=== PATIENT | female | born 1955 | race Caucasian/White ===

== ENCOUNTER 2017-08-13 10:00 | Outpatient (CLI) | payer OTHER ==
--- NOTE | 2017-08-13 11:20 | ULT ---
LEFT BREAST DIAGNOSTIC ULTRASOUND: Date: 08/13/17 INDICATION: Follow-up left breast lesion in 3 o'clock position. FINDINGS: There is a 6.0 x 5.0 x 4.5 mm anechoic cyst with posterior acoustic wall enhancement corresponding t he mammographic mass seen in the left breast 3:00 position on the diagnostic mammogram. IMPRESSION: BIRADS 2: Benign Finding(s) Recommend annual mammographic screening. Patient counseled on findings prior to leaving the departme nt. POS: [facility]
--- NOTE | 2017-08-13 11:22 | MMO ---
LEFT BREAST DIAGNOSTIC MAMMOGRAM: Date: 08/13/17 COMPARISON: Screening evaluation dated 08/12/17. FINDINGS: The left breast lesion identified on the screening study of 08/12/17 persists on the diagnostic foca l spot magnification compression views. There is an oval equal density lesion seen within the left b reast 3 o'clock position. Ultrasound examination of this lesion demonstrated that the lesion was ane choic with posterior acoustic wall enhancement and measured 6.0 x 5.0 mm and is consistent with a si mple cyst. There is a biopsy clip within the left breast that was reportedly related to a benign biopsy. There are benign-appearing calcifications within the left breast. IMPRESSION: BIRADS 2: Benign Finding(s) The focal equal density oval mass within the left breast 3 o'clock position demonstrated to be a cys t by sonography. Patient was counseled on the findings prior to leaving the department. POS: [facility]
== END 2017-08-13 10:01 | disposition home or self-care (01) ==
LOC: MAMMO 10:00
PROVIDERS: ATTEND Obstetrics & Gynecology
DX: R92.2 Inconclusive mammogram (principal)
CPT/HCPCS: G0206-LT

== ENCOUNTER 2018-09-08 12:01 | Outpatient (CLI) | payer OTHER | END 2018-09-08 12:02 | disposition home or self-care (01) | LOC: BICMAMMO 12:01 | PROVIDERS: ATTEND Obstetrics & Gynecology | DX: Z12.31 Encounter for screening mammogram for malignant neoplasm of breast (principal); Z80.3 Family history of malignant neoplasm of breast | CPT/HCPCS: 77063; 77067 ==